=== PATIENT | male | born 2005 | race Caucasian/White ===

== ENCOUNTER 2025-05-01 15:14 | Emergency (ER) | payer OTHER ==
[2025-05-01 15:21] VITALS: BP 140/85; PULSE 69; RESP 18; TEMP 98.6; BMI 18.6
[2025-05-01 16:17] LABS: ABSOLUTE IMMATURE GRANULOCYTES 0.01 x10^3/uL (0.0-0.031); BASOPHILS # 0.06 x10^3/uL (0.01-0.08); EOSINOPHIL % 0.6 % (0.8-7.0); EOSINOPHILS # 0.04 x10^3/uL (0.04-0.54); HEMATOCRIT 45.2 % (40.1-51.0); HEMOGLOBIN 14.9 g/dL (13.7-17.5); MEAN CELL VOLUME 91.3 fl (79.0-92.2); MEAN PLT VOLUME 9.9 fl (9.4-12.4); MONOCYTE # 0.87 x10^3/uL (0.30-0.82); MONOCYTE % 13.8 % (5.3-12.2); PLATELET COUNT 274 x10^3/uL (163-337); RDW 12.9 % (12.0-15.6)
[2025-05-01 16:35] LABS: EPITHELIAL CELLS 0-5 /hpf
[2025-05-01 16:41] LABS: ALBUMIN 4.6 g/dl (3.4-5.0); BILIRUBIN,TOTAL 0.5 mg/dl (0.2-1); CALCIUM 9.7 mg/dl (8.5-10.1); CREATININE 1.1 mg/dl (0.6-1.3); MAGNESIUM 2.1 mg/dL (1.8-2.4); POTASSIUM 4.1 mmol/L (3.5-5.1); TOT PROT 8.2 g/dl (6.4-8.2)
[2025-05-03 20:01] LABS: HCV DIAGNOSTIC IN-HOUSE W/RFLX NON-REACTIVE (NONREACTIVE)
[2025-05-03 20:16] LABS: HIV INTERPRETATION NEGATIVE (NEGATIVE)
== END 2025-05-01 18:05 | disposition home or self-care (01) ==
LOC: FER 15:14
DX: N50.811 Right testicular pain (principal); R11.14 Bilious vomiting; R20.0 Anesthesia of skin; R20.2 Paresthesia of skin; R19.5 Other fecal abnormalities; R07.89 Other chest pain; R53.1 Weakness; F41.9 Anxiety disorder, unspecified; R10.9 Unspecified abdominal pain
CPT/HCPCS: 36415; 76870-TC; 80053; 81003; 81015; 83735; 85025; 86803; 87389; 99284-25